=== PATIENT | male | born 1980 | race Hispanic/Latino ===

== ENCOUNTER 2016-11-07 17:43 | Emergency (ER) ==
[2016-11-07 17:48] VITALS: BP 148/93
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
== END 2016-11-07 19:18 | disposition home or self-care (01) ==
LOC: P.ED 17:43
DX: S00.03XA Contusion of scalp, initial encounter (principal); S09.90XA Unspecified injury of head, initial encounter; V49.9XXA Car occupant (driver) (passenger) injured in unspecified traffic accident, initial encounter
CPT/HCPCS: 99283